=== PATIENT | male | born 1985 | race Caucasian/White ===

== ENCOUNTER 2018-12-24 08:48 | Emergency (ER) | payer OTHER ==
[2018-12-24 08:56] VITALS: BP 164/95
--- NOTE | 2018-12-24 10:28 | UC ---
Ear Complaint HPI - HPI Summary HPI Summary: 33 y/o male presents to the urgent care c/o intermittent Rt ear pain for the past 2 weeks. Pt states ear pain has worsen in the past week and now is constant. Pain is 510 w/ pressure and decrease hearing. Symptoms started w/ common cold. Pt denies fever, but has had chills at night. Denies dizziness, SOB , cough, chest pain, abdominal pain, N/V/d. - History of Current Complaint Chief Complaint: UCEar Stated Complaint: EAR ACHE Time Seen by Provider: 12/24/18 10:27 Hx Obtained From: Patient Onset/Duration: Gradual Onset, Lasting Days - 10 days, Still Present, Worse Since - 1 week Severity Initially: Mild Severity Currently: Moderate Pain Intensity: 5 Pain Scale Used: 0-10 Numeric Alleviating Factors: OTC Meds Associated Signs/Symptoms: Positive: Hearing Loss, URI Symptoms - Allergies/Home Medications Allergies/Adverse Reactions: Allergies Allergy/AdvReac Type Severity Reaction Status Date / Time No Known Allergies Allergy Verified 12/24/18 08:56 PMH/Surg Hx/FS Hx/Imm Hx Previously Healthy: Yes Respiratory History: Asthma - Surgical History Surgical History: None - Family History Known Family History: Positive: None - Pt denies FMHX - Social History Occupation: Employed Full-time Lives: With Family Alcohol Use: None Substance Use Type: None Smoking Status (MU): Never Smoked Tobacco Review of Systems All Other Systems Reviewed And Are Negative: Yes Constitutional: Positive: Negative Skin: Positive: Negative Eyes: Positive: Negative ENT: Positive: Ear Ache - Rt ear pain w/ decrease hearinng and pressure, Nasal Discharge - clear Respiratory: Positive: Negative Cardiovascular: Positive: Negative Gastrointestinal: Positive: Negative Genitourinary: Positive: Negative Motor: Positive: Negative Neurovascular: Positive: Negative Musculoskeletal: Positive: Negative Neurological: Positive: Negative Psychological: Positive: Negative Is Patient Immunocompromised?: No Physical Exam - Summary Physical Exam Summary: Vital signs: reviewed General: well developed, well nourished male sitting in the examining table w/o any apparent distress Skin: [place], warm and dry, no evidence of atopic dermatitis, psoriasis, seborrhea. HEENT: -Head: atraumatic, non tender; no scalp dermatitis. -Eyes: sclera and conjunctiva clear, PERRLA, EOMI -Ears: no pre- or postauricular lymphadenopathy or erythema; RT external ear canal clear, Rt TM injected w/ erythema and yellowish purulent discharge, LF external ear canal clear and LF TM WNL. TMs normal w/out bulging or retraction. Good light reflex. No fluid level, vesicles, or bullae. No perforation. -Nose/Face: erythematous and edematous nasal mucosa with clear rhinorrhea, no frontal or maxillary sinus tender to palpation. -Mouth/Throat: Mucous membrane moist, posterior pharynx clear, no erythema or exudates. Neck: supple, FROM, nontender, no lymphadenopathy, no meningismus. Chest: Clear to auscultation, normal breath sounds Abd: soft, Bowel sounds active, Nontender. Back: no spinal or CVAT Neuro: A&O x4, GCS 15, no focal neuro deficits, normal behavior for age. Triage Information Reviewed: Yes Vital Signs: Initial Vital Signs Temp 98.5 F 12/24/18 08:53 Pulse 92 12/24/18 08:53 Resp 17 12/24/18 08:53 BP 164/95 12/24/18 08:53 Pulse Ox 99 12/24/18 08:53 Ear Complaint Course/Dx - Course Course Of Treatment: 33 y/o male presents to the urgent care c/o intermittent Rt ear pain for the past 2 weeks. Pt states ear pain has worsen in the past week and now is constant. Pain is 510 w/ pressure and decrease hearing. Symptoms started w/ common cold. Pt denies fever, but has had chills at night. Denies dizziness, SOB, cough, chest pain, abdominal pain, N/V/d. Hx obtained. Pt w/ Rt otitis media on examination. Pt Rx Amoxicillin PO. PT Advised to give Ibuprofen PO to alleviate symptoms. if symptoms do not improve or worsen to return to the urgent care or f/u with PCP for further management. Pt's BP is elevated today advised to decrease salt in diet, monitor BP and f/u with PCP for further management. PT understood and agreed with D/C - Differential Dx/Diagnosis Differential Diagnosis/HQI/PQRI: Cerumen Impaction, Otitis Externa, Otitis Media , Perforated TM, URI Provider Diagnosis: Right otitis media, Elevated BP without diagnosis of hypertension Discharge - Sign-Out/Discharge Documenting (check all that apply): Patient Departure - D/C home All imaging exams completed and their final reports reviewed: No Studies - Discharge Plan Condition: Stable Disposition: HOME Prescriptions: Amoxicillin PO (*) [Amoxicillin 875 MG (*)] 875 mg PO BID #20 tab Patient Education Materials: Ear Infection (ED), Low-Sodium Diet (ED) Referrals: Olaf Zelaya MD [Primary Care Provider] - 3 Days Additional Instructions: 1- Please take the full course of the antibiotic to avoid resistance. 2-Please take ibuprofen PO q6-8hrs prn as instructed after meals to alleviate pain and swelling. Increase fluid intake, eat well, rest and avoid strenuous exercise 3-If symptoms do not improve or worsen please return to the urgent care or f/u with your PCP for further evaluation and treatment. 4-Your BP is elevated today. please decrease salt in your diet, monitor BP and if it continues to be elevated please f/u with your PCP for further management. - Billing Disposition and Condition Condition: STABLE Disposition: Home
== END 2018-12-24 10:48 | disposition home or self-care (01) ==
LOC: UCEAST 08:48
DX: H66.91 Otitis media, unspecified, right ear (principal); R03.0 Elevated blood-pressure reading, without diagnosis of hypertension; J45.909 Unspecified asthma, uncomplicated
CPT/HCPCS: 99212; G0463

== ENCOUNTER 2019-12-23 10:46 | Day surgery (SDC) | payer OTHER ==
[~2019-12-23 10:46] MED LIST: Buffered Lidocaine 1% SYRIN* 1 ML/SYRINGE INTRADERM ONE; Famotidine IV* 10 MG/ML 2 ML (20 mg) IV ONE; Lactated Ringers 1000 ML Bag* 1,000 ML IV SCH
[2019-12-23] MEDS ORDERED: Famotidine IV* 10 MG/ML 2 ML (20 mg) ONE (11:05)
[2019-12-23] MEDS ORDERED: Midazolam* 1 MG/ML 5 ML VIAL (5 MG) ONE (11:44)
[2019-12-23] MEDS ORDERED: Ondansetron INJ* 2 MG/ML VIAL ONE ×2 (11:44→16:24)
[2019-12-23] MEDS ORDERED: fentaNYL* 50 MCG/ML 2 ML VIAL (100 MCG VIAL) ONE ×2 (11:44→12:57)
[2019-12-23] MEDS ORDERED: Cisatracurium* 2 MG/ML MDV 5 ML ONE (11:44)
[2019-12-23] MEDS ORDERED: Propofol* 10 MG/ML 20 ML BTL ONE (11:44)
[2019-12-23] MEDS ORDERED: Lidocaine 2% PF * 5 ML VIAL ONE (11:44)
[2019-12-23] MEDS ORDERED: Dexamethasone IV* 4 MG/ML 1 ML (4 MG) ONE (11:44)
[2019-12-23] MEDS ORDERED: Ciprofloxacin 0.3% OPTH.SOL* BTL ONE (12:04)
[2019-12-23] MEDS ORDERED: EPINEPHRINE 1 MG/ML 1 ML VIAL ONE (12:04)
[2019-12-23] MEDS ORDERED: Lidocaine 1% w EPI 1:100,000* MDV 20 ML VIAL ONE (12:04)
[2019-12-23] MEDS ORDERED: Gelfoam 12-7 ADSORBABL SPONGE ONE (12:05)
[2019-12-23] MEDS ORDERED: Bacitracin OINTMENT* 0.5% 0.5 oz TUBE ONE (12:08)
[2019-12-23] MEDS ORDERED: fentaNYL* 50 MCG/ML 2 ML VIAL (100 MCG VIAL) IV PRN (13:54)
[2019-12-23] MEDS ORDERED: Naloxone* 0.4 MG/ML 1 ML VIAL IV PRN (13:54)
[2019-12-23] MEDS ORDERED: Acetaminophen IV 1GM/100ML * 1,000 MG/100 ML VIAL IVPB ONE (13:54)
[2019-12-23] MEDS ORDERED: Ondansetron INJ* 2 MG/ML VIAL IV PRN (13:54)
[2019-12-23] MEDS ORDERED: Acetaminophen IV 1GM/100ML * 100 ML ONE (15:18)
[2019-12-23 17:40] VITALS: BP 129/79
--- NOTE | 2019-12-24 04:53 | OP ---
OPERATIVE REPORT: DATE OF OPERATION: 12/23/19 DATE OF : 83 ATTENDING SURGEON: Yung Hou MD. DRYCLEANER: None. ANESTHESIA: General. PRE-OP DIAGNOSIS: Cholesteatoma, right ear. POST-OP DIAGNOSIS: Cholesteatoma, right ear. OPERATIVE PROCEDURE: Revision right tympanomastoidectomy with ossicular chain reconstruction. ESTIMATED BLOOD LOSS: Less than 20 cc. INDICATIONS: This is a 34-year-old male who presents today for a second-look right tympanomastoidect grzegorz. He had first procedure about 6 months ago, had extensive cholesteatoma. The decision was made to defer reconstruction and bring the patient back for a second-look procedure. FINDINGS: Small pearls of recurrent cholesteatoma in the sinus tympani region and the superior mesot ympanum. DESCRIPTION OF PROCEDURE: He was brought to the operating room. General anesthesia was induced and an oral endotracheal tube was placed. A facial nerve monitor was then applied and found to be in goo d working order. The patient's right ear was then prepped with Betadine and draped sterilely. A rossy e-out was performed. The postauricular incision site was injected with 1% lidocaine with 1:100,000 e pinephrine. The ear canal was irrigated and cleansed with Betadine. A 4-quadrant canal injection wa s then made. A disposable angled Benton blade was then used to make a curvilinear incision from appr oximately 12 o'clock to 6 o'clock, approximately 8 mm lateral to the tympanic annulus. A piece of ep inephrine-soaked Gelfoam was placed into the ear canal for hemostasis. Attention was then turned pos tauricularly . An incision was made at the location of the prior scar down to the mastoid periosteum . The mastoid cavity was entered posteriorly. The vector of the dissection was then transitioned an teriorly to the posterior canal wall. The posterior canal skin was elevated down to the level of the previously made canal incision, and the ear was then retracted forward. The mastoid cavity was expl ored. There was significant amount of fibrotic tissue present and small little areas of cholesterol granuloma, but no cholesteatoma was seen. The tympanomeatal flap was then elevated. The patient had extensive involvement of the incus with cholesteatoma, so that was resected at the patient's first p rocedure, but the manubrium of the malleus was left intact. The tympanomeatal flap was elevated, and there was significant amount of fibrosis and scarring in the middle ear space. This was gently lyse d with a curved pick. The stapes superstructure was readily identified. There was what appeared to be a cholesteatoma fani present in the sinus tympani region and another cholesteatoma fani present more superiorly in the mesotympanum above the stapes. These were gently dissected out with a variety of curved suctions, curved pick, and Whirlybird dissectors. There did not appear to be cholesteatom a anywhere else. Ultimately, a Dornhoffer partial ossicular reconstruction prosthesis was selected. This had a 2- mm height and was felt to be the best option because of a relatively contracted middle ear space. Prior to placement of the prosthesis, a small amount of cartilage was harvested from the patient's tatyana. This was thinned to a thickness of approximately 0.3 mm. Two pieces were obtaine d, one was used to reconstruct a small scutal defect, and the other was placed on top of the prosthes is. The prosthesis was seated on the capitulum of the stapes and the anterior portion of the prosthe sis was placed underneath the manubrium of the malleus. The prosthesis and cartilage was secured wit h small pieces of Floxin-soaked Gelfoam. The tympanomeatal flap was then laid back down. The ear ca nal was filled with Floxin- soaked Gelfoam as was the mastoid cavity. The postauricular incision was then closed in 2 layers using 4-0 Vicryl. Additional packing was then placed in the lateral ear can al. Bacitracin ointment was placed posteriorly and a mastoid dressing was applied. At no point duri ng the case, did the facial nerve monitor alarm. The monitor was removed. The patient was delivered to the PACU in stable condition. [id number]/[facility] #: [id number]
== END 2019-12-23 17:44 | disposition home or self-care (01) ==
LOC: OR 10:46
PROVIDERS: ATTEND Otolaryngology
DX: H71.91 Unspecified cholesteatoma, right ear (principal); I10 Essential (primary) hypertension; Z87.442 Personal history of urinary calculi
CPT/HCPCS: A9270-GY; J1100; J2250; J2405; J2704; J3010